=== PATIENT | male | born 1955 | race Caucasian/White ===

== ENCOUNTER 2019-04-22 15:56 | Inpatient (IN) ==
--- NOTE | 2019-04-22 16:33 | EKG Report ---
Test Performed on : 04/22/2019 4:04:23 PM Test Reason : DIZZINESS Blood Pressure : / mmHG Vent. Rate : 070 BPM Atrial Rate : 070 BPM P-R Int : 150 ms QRS Dur : 082 ms QT Int : 408 ms P-R-T Axes : 057 -19 047 degrees QTc Int : 440 ms Normal sinus rhythm. Minimal voltage criteria for LVH, may be normal variant Nonspecific ST and T wave abnormality Abnormal ECG No previous ECGs available Unconfirmed Result
--- NOTE | 2019-04-22 18:04 | Diag Imaging Result Doc PS360 ---
EXAM: CT HEAD W/O CONTRAST HISTORY: dizzy, headache TECHNIQUE: CT head without contrast COMPARISON: None. FINDINGS: No parenchymal hemorrhage. No epidural or subdural hematoma. No subarachnoid hemorrhage. No microvascular ischemic changes. Small hypodense area in the posterior horn of the right internal capsule. No mass identified on this noncontrasted exam. No hydrocephalus. No sinus opacification. IMPRESSION: 1.No hemorrhage 2.Possible recent infarct near the posterior horn of the right internal capsule. A follow-up MRI is recommended. This exam was performed using automated exposure control, adjustment of mA or kV according to patient size, and/or use of iterative reconstruction technique. Electronically signed by Pierre Qureshi 04/22/2019 6:01 PM
[2019-04-22 18:28] LABS: BASO# 0.02 X1000 (0.0-0.2); BASO% 0.2 % (0.0-0.8); EOS% 0.9 % (0.0-10.0); HEMATOCRIT 41.8 % (42.0-52.0); HEMOGLOBIN 13.9 g/dL (14.0-18.0); IMM GRAN# 0.05 X1000 (0.0-0.04); IMM GRAN% 0.5 % (0.0-0.5); LYMPH# 1.83 X1000 (1.2-3.4); MCH 28.8 PG (27-31); MCHC 33.3 g/dL (33-37); MCV 86.5 FL (81-99); MONO# 0.68 X1000 (0.11-0.59); MONO% 6.3 % (1.7-9.3); MPV 9.7 FL (7.4-10.4); NEUT% 75.1 % (42.2-75.2); PLT 357 X1000 (130-400); RBC 4.83 XMIL (4.7-6.1); RDW 13.4 % (11.5-14.5); WBC 10.78 X1000 (4.8-10.8)
[2019-04-22 18:41] LABS: AGAP 11; ALB/GLOB RATIO 1.3; ALBUMIN 4.1 g/dL (3.5-5.0); ALKALINE PHOSPHATASE 66 U/L (32-122); BUN 13 mg/dL (8-22); CHLORIDE 96 mmol/L (98-107); COSMO 272; CREATININE 0.8 mg/dL (0.7-1.2); ESTIMATED GFR > 60; GLUCOSE 102 mg/dL (70-104); GOT 23 U/L (10-34); GPT 33 U/L (10-44); POTASSIUM 3.9 mmol/L (3.5-5.1); SODIUM 136 mmol/L (136-145); TCO2 29 mmol/L (25-35); TOTAL BILIRUBIN 0.39 mg/dL (0.20-1.00); TOTAL PROTEIN 7.3 g/dL (6.3-8.3)
--- NOTE | 2019-04-22 19:00 | PROVIDER DOCUMENTATION ---
This chart was entered by Kimberlee Larsen Scribe, acting as scribe for Shahzad Chapman MD. HPI-General Adult - General Source: patient - History of Present Illness -Gen Adult Nature of Presenting Problems: Patient is a 63 year old male who presents with dizziness and nausea that has been present since this morning. Patient states seeing Dr. Calloway prior to arrival and was informed to go to the ED. States having headaches intermittently for 2 weeks. Denies vision changes. Location of Pain/Injury: reports: none Pain Radiation: reports: no radiation Quality of Pain: reports: none Severity: reports: mild Onset/Duration: reports: this morning Timing: reports: still present Context/Activities at Onset: reports: light activity Associated Symptoms: reports: dizziness, headaches, nausea Similar Symptoms Previously?: Yes Recently seen or treated by another doctor?: Yes <Shahzad Chapman - Last Filed: 04/22/19 18:58> <Drake Higuera - Last Filed: 04/22/19 19:52> - General Chief Complaint: Dizziness Stated Complaint: DR CALLOWAY REFERRED Time Seen by Provider: 04/22/19 16:57 Review of Systems - Adult - REVIEW OF SYSTEMS - ADULT Constitutional: reports: no symptoms reported. denies: chills, fever, fatique Eyes: reports: no symptoms reported Ears, Nose, Mouth & Throat: reports: no symptoms reported Cardiovascular: reports: no symptoms reported Respiratory: reports: no symptoms reported Gastrointestinal: reports: see HPI, nausea. denies: abdominal pain, diarrhea, vomiting Genitourinary: reports: no symptoms reported Musculoskeletal: reports: no symptoms reported Integumentary: reports: no symptoms reported Neurological: reports: see HPI, dizziness/vertigo (dizziness), headache/migraines (RICH). denies: numbness, seizure, syncope Psychiatric: reports: no symptoms reported Endocrine: reports: no symptoms reported Hematologic/Lymphatic: reports: no symptoms reported Allergic/Immunologic: reports: no symptoms reported All Other Systems: Reviewed and Negative <Shahzad Chapman - Last Filed: 04/22/19 18:58> Past History - Adult - PAST MEDICAL HISTORY-ADULT Review of Records: reports: Old Records Reviewed, Nursing Assessment Review, Medications Reviewed, Social history reviewed & non-contributory. Major Childhood Illnesses: reports: denies history Cardiovascular: reports: HTN Respiratory: reports: denies history Gastrointestinal: reports: denies history Obstetrical/Gynecological: reports: denies history Genitourinary: reports: denies history Musculoskeletal: reports: denies history Neurological: reports: denies history Psychiatric: reports: denies history Endocrine/Immune: reports: denies history Other Conditions: reports: denies history - PRIOR SURGERIES/PROCEDURES Surgical/Procedure History: reports: hernia repair - IMMUNIZATION STATUS Childhood Immunizations: See Nurse Assessment Flu Vaccine: See Nurse Assessment - FAMILY HISTORY Family History: reviewed, not pertinent - SOCIAL HISTORY Smoking: denies Substance Use: denies Living Situation: family <Shahzad Chapman - Last Filed: 04/22/19 18:58> Physical Exam-General - PHYSICAL EXAM-ADULT Initial Vital Signs Reviewed: Yes - CONSTITUTIONAL General Appearance: alert, no apparent distress. negative: lethargic, slow to respond - EYES Eyes: PERRL/EOMI, pink conjunctivae. negative: scleral icterus - HEAD, EARS, NOSE, MOUTH & THROAT HENMT: normocephalic/atraumatic, moist mucous membranes, normal ENT inspection, TMs normal, pharynx normal, other (hearing aid in bilateral ears). negative: angioedema, hearing deficit - RESPIRATORY Respiratory: chest non-tender, lungs clear, normal breath sounds. negative: crackles, rhonchi - CARDIOVASCULAR Cardiovascular: normal peripheral pulses, regular rate, rhythm. negative: tachycardia, systolic murmur - GASTROINTESTINAL (ABDOMEN) Abdominal Exam: normal bowel sounds, non tender, soft. negative: guarding, rebound - MUSCULOSKELETAL Extremity: non-tender, normal inspection. negative: deformity, swelling DTR: bicep (R): 2+, bicep (L): 2+, tricep (R): 2+, tricep (L): 2+, knee (R): 2+, knee (L): 2+, ankle (R): 2+, ankle (L): 2+ - SKIN Integumentary: normal color, normal turgor, warm/dry. negative: cyanosis, ecchy mosis, erythema, jaundice - NEUROLOGIC Neurologic: incident commander II-XII nml as tested, grossly normal, no motor/sensory deficits. negative: aphasia, facial droop - PSYCHIATRIC Psych/Mental Status: normal mood/affect, oriented x 3. negative: anxious <Shahzad Chapman - Last Filed: 04/22/19 18:58> Progress - PLAN OF CARE/RESULTS Progress/Plan/Lab Results: Vital Signs - 8 hr 04/22/19 15:57 Temperature 98.0 F Pulse Rate 74 Respiratory Rate 16 Blood Pressure 178/113 O2 Sat by Pulse Oximetry 98 Orders Category Date Time Status EKG [EKG] Stat Ther 04/22/19 16:04 Draft Result Diagrams: 04/22/19 18:07 04/22/19 18:07 - EKG 1 Time of EKG reading by physician:: 16:04 EKG Read and Signed by:: Shahzad Chapman EKG Interpretation (*Must complete 3 of following elements*): Abnormal Rate: 70 Rhythm: normal sinus rhythm [place]: normal QRS: LVH (minimal voltage criteria, may be normal variant) DE Interval: normal Comments: nonspecific ST and T wave abnormality. - CHANGE OF SHIFT REPORT (ED Provider) 1 Report Given and Care Transferred to:: [facility] Time of Transfer: 19:00 Items Pending: Physician Consult/Arrival <Shahzad Chapman - Last Filed: 04/22/19 18:58> - PLAN OF CARE/RESULTS Progress/Plan/Lab Results: Vital Signs - 8 hr 04/22/19 15:57 04/22/19 18:13 Temperature 98.0 F Pulse Rate 74 Pulse Rate [Sitting] 83 Pulse Rate [Standing] 88 Pulse Rate [Supine] 75 Respiratory Rate 16 Blood Pressure 178/113 Blood Pressure [Sitting] 148/76 Blood Pressure [Standing] 149/94 Blood Pressure [Supine] 153/66 O2 Sat by Pulse Oximetry 98 Laboratory Results - last 24 hr 04/22/19 04/22/19 18:07 18:07 WBC 10.78 RBC 4.83 Hgb 13.9 L Hct 41.8 L MCV 86.5 MCH 28.8 MCHC 33.3 RDW Std Deviation 13.4 Plt Count 357 MPV 9.7 Immature Gran % (Auto) 0.5 Neut % (Auto) 75.1 Lymph % (Auto) 17.0 L [place] % (Auto) 6.3 Eos % (Auto) 0.9 Baso % (Auto) 0.2 Immature Gran # (Auto) 0.05 H Neut # (Auto) 8.10 H Lymph # (Auto) 1.83 [place] # (Auto) 0.68 H Eos # (Auto) 0.10 Baso # (Auto) 0.02 Sodium 136 Potassium 3.9 Chloride 96 L Carbon Dioxide 29 Anion Gap 11 BUN 13 Creatinine 0.8 Estimated GFR/1.73 m2 > 60 BUN/Creatinine Ratio 16 Glucose 102 Calculated Osmolality 272 Calcium 9.0 Total Bilirubin 0.39 AST 23 ALT 33 Alkaline Phosphatase 66 Total Protein 7.3 Albumin 4.1 Globulin 3.2 Albumin/Globulin Ratio 1.3 Orders Category Date Time Status ED: Orthostatic Vital Signs (E as directed Care 04/22/19 17:[address] HEAD W/O CONTRAST [CT] Stat Exams 04/22/19 17:35 Completed CBC WITH DIFF [HEME] Stat Lab 04/22/19 18:07 Completed CMP [COMPREHENSIVE METABOLIC PANEL] [CHEM] Stat Lab 04/22/19 18:07 Completed EKG [EKG] Stat Ther 04/22/19 16:04 Draft Result Diagrams: 04/22/19 18:07 04/22/19 18:07 - REASSESSMENT Reassessment #1 Time Reassessed: 19:47 Status: improving (Seen and examined by me. Case discussed with Dr. Chapman at shift change. Dizziness has improved. Has abnormal CT head, requiring CVA/TIA work-up. Patient has had extensive ENT issues with dizziness recently, and was sent in by Dr. Calloway today. States feels better. BP is very high, will administer po asa and IV labetalol as he may have had CVA) Reassessment Comment: Patient does not meet criteria for TPA as BP too high and symptoms resolved - CONSULTS/PCP/HOSPITALIST Notification #1 *Consult/PCP/Hospitalist*: Dr. 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 <Drake Higuera - Last Filed: 04/22/19 19:52> - Departure DIAGNOSIS: Dizziness, Acute CVA (cerebrovascular accident), Hypertensive urgency Disposition: ADMITTED INPATIENT 09 Condition: Fair Referrals and Follow-Ups: Gabriel Hansen MD [Primary Care Provider] - Attestation - Physician/ HECTOR Attestation The physician spent face to face time with patient:: Yes Advanced Practice Provider documentation review:: Supervising physician onsite and consulted in the evaluation and care of this patient. The physician did have a face to face encounter with the patient. <Shahzad Chapman - Last Filed: 04/22/19 18:58> - Physician/ HECTOR Attestation Patient care was provided by Advanced Practice Provider:: No The physician spent face to face time with patient:: Yes Advanced Practice Provider documentation review:: Supervising physician onsite and consulted in the evaluation and care of this patient. The physician did have a face to face encounter with the patient. <Drake Higuera - Last Filed: 04/22/19 19:52> This chart was documented by the indicated scribe, (Kimberlee Larsen Scribe) and accurately reflects the services I performed and decisions made by me, Shahzad Chapman MD, as attested by the provider's signature.
[2019-04-22] MEDS ORDERED: ASPIRIN PO ONE (19:49)
[2019-04-22] MEDS ORDERED: LABETALOL IV ONE (19:49)
[2019-04-22 22:09] LABS: MAGNESIUM 2.3 mg/dL (1.5-2.7)
[2019-04-22 22:14] LABS: INR 0.81; PROTIME 11.9 Seconds (11.0-16.0)
[2019-04-23] MEDS ORDERED: TYLENOL PO PRN (01:11)
[2019-04-23 06:35] LABS: BASO# 0.04 X1000 (0.0-0.2); BASO% 0.5 % (0.0-0.8); EOS# 0.05 X1000 (0.0-0.7); EOS% 0.6 % (0.0-10.0); HEMATOCRIT 40.4 % (42.0-52.0); HEMOGLOBIN 13.4 g/dL (14.0-18.0); IMM GRAN# 0.03 X1000 (0.0-0.04); IMM GRAN% 0.3 % (0.0-0.5); LYMPH# 1.68 X1000 (1.2-3.4); LYMPH% 19.2 % (20.5-51.1); MCHC 33.2 g/dL (33-37); MCV 87.4 FL (81-99); MONO# 0.57 X1000 (0.11-0.59); MONO% 6.5 % (1.7-9.3); MPV 9.8 FL (7.4-10.4); NEUT# 6.36 X1000 (1.4-6.5); NEUT% 72.9 % (42.2-75.2); PLT 351 X1000 (130-400); RBC 4.62 XMIL (4.7-6.1); RDW 13.6 % (11.5-14.5); WBC 8.73 X1000 (4.8-10.8)
[2019-04-23 07:16] LABS: AGAP 9; BUN 15 mg/dL (8-22); CALCIUM 8.9 mg/dL (8.8-10.2); CHLORIDE 99 mmol/L (98-107); COSMO 277; CREATININE 0.8 mg/dL (0.7-1.2); ESTIMATED GFR > 60; GLUCOSE 105 mg/dL (70-104); POTASSIUM 4.2 mmol/L (3.5-5.1); SODIUM 138 mmol/L (136-145); TCO2 30 mmol/L (25-35)
--- NOTE | 2019-04-23 09:50 | Diag Imaging Result Doc PS360 ---
MRI BRAIN W/WO CONTRAST - 04/23/2019 INDICATION: stroke COMPARISON: Head CT 04/22/2019 FINDINGS: There is no area of restricted diffusion. The ventricles and sulci are normal in size and contour. No intracranial mass or hemorrhage. No abnormal contrast enhancement. There are some very minimal faint cerebral white matter hyperintensities bilaterally, mainly in the subcortical and deep white matter. Midline structures are normal. IMPRESSION: Faint, nonspecific white matter changes most likely chronic microvascular disease. No acute process. Electronically signed by Gopal Rodrigues 04/23/2019 9:47 AM
--- NOTE | 2019-04-23 10:54 | HISTORY AND PHYSICAL ---
PRIMARY CARE PHYSICIAN: Dr. Gabriel Sheldon. CHIEF COMPLAINT: Dizziness. HISTORY OF PRESENT ILLNESS: A 63-year-old male with a history of hypertension and hyperlipidemia, who had presented to the emergency department with complaint of dizziness he has been having for the past two months or so. He apparently was seeing his ENT physician, who was putting him on some vestibular exercises. He states that he was doing fine. However, over the past day or so, his dizziness worsened, and he stated that he had some speech disturbance. He was evaluated by his ENT physician, who sent him to the emergency department for possible stroke workup. The patient was evaluated in the ED. He had imaging done, which did show suspicion for recent CVA. Subsequently, he will require admission for further management. At the time of my examination, the patient denied any headache, fever, chills, chest pain, shortness of breath, hemoptysis, or weight changes, but complained of dizziness. PAST MEDICAL HISTORY: Includes hypertension, hyperlipidemia. PAST SURGICAL HISTORY: Hernia repair, sinus surgery. ALLERGIES: No known drug allergies. CURRENT MEDICATIONS: He does not recall, and nursing staff will reconcile. SOCIAL HISTORY: No history of smoking. Admits to social alcohol use. Denies any illicit drug use. FAMILY HISTORY: No history of coronary disease. REVIEW OF SYSTEMS: A 14-point review of systems is as per HPI, other systems negative. PHYSICAL EXAMINATION: GENERAL: Cooperative, friendly male. He is resting more comfortably now. VITAL SIGNS: Temperature 98.0, pulse 74, respirations 16, blood pressure 178/113. HEENT: Atraumatic, normocephalic. Extraocular movements intact. PERRLA. NECK: No masses. CHEST: Clear to auscultation. CARDIOVASCULAR: Regular rate and rhythm. ABDOMEN: Soft. Positive bowel sounds. NEUROLOGIC: He is awake, alert, oriented x3. Speech is intact. Strength 5/5 to lower extremities. GENITOURINARY: No bladder distention. SKIN: Warm. IMAGING AND LABORATORY DATA: WBC 10.78, hemoglobin 13.9, hematocrit 41.8, platelets 357,000. Sodium 136, potassium 3.9, chloride 96, CO2 of 29, BUN is 13, creatinine 0.8, glucose is 102. Head CT shows possible recent infarct near the posterior horn of the right internal capsule. ASSESSMENT: A 63-year-old male with a history of hypertension and hyperlipidemia, who had presented to the emergency department with a 2-month history of having dizziness. Apparently, it worsened over the past day or so. He was evaluated by his Ear, Nose, and Throat physician, who sent him to the emergency department for possible stroke workup. 1. Dizziness, suspected cerebrovascular accident. 2. Hypertension. 3. Hyperlipidemia. PLAN: 1. Will admit the patient to medical floor with telemetry. 2. Continue with stroke workup. 3. Consult Neurology. 4. Schedule the patient for MRI of the brain. 5. Will allow permission hypertension. 6. Will monitor blood pressure closely. 7. Put the patient on DVT prophylaxis with SCDs. 8. Will continue to follow and reassess and make further recommendations based on the patient's clinical course. cc: Justin Rios MD
[2019-04-23 16:31] VITALS: BP 141/83
--- NOTE | 2019-04-23 17:12 | Diag Imaging Result Doc PS360 ---
EXAM: CT ANGIOGRAM HEAD/NECK INDICATION: Rule out thrombosis TECHNIQUE: This exam was performed using automated exposure control, adjustment of mA or kV according to patient size, and/or use of iterative reconstruction technique. Thin section axial images through the head and neck as well as 3-D MIPS were obtained. COMPARISON: None. FINDINGS: HEAD: There is no evidence of flow-limiting stenosis, vascular malformation, or cerebral aneurysm involving the arteries comprising the pilot station of [place] including the anterior, middle, and posterior cerebral arteries. The distal ICAs and distal vertebral arteries are unremarkable. The basilar artery is patent. NECK: There is mild focal calcification at the carotid bulb on the right just distal to the bifurcation with up to 30% luminal narrowing. There is no evidence of flow-limiting stenosis, vascular malformation, dissection, or aneurysm involving the remainder of the carotid system on the right or the left carotid system. The left ICA is somewhat tortuous. The left vertebral artery is slightly dominant. Both vertebral arteries are patent throughout the courses. IMPRESSION: 1.Grossly unremarkable CTA head with no flow-limiting stenosis identified. 2.Mild atherosclerotic calcification at the right carotid bulb without is 30% luminal narrowing. Electronically signed by Braxton Molina 04/23/2019 5:10 PM
--- NOTE | 2019-04-23 20:24 | CONSULTATION ---
DATE OF CONSULTATION: 04/23/2019 HISTORY OF PRESENT ILLNESS: Mr. Caballero is 63 years old and he has had some dizziness with vision disturbance, headache, unsteady gait, question of neurologic explanation. History from the patient is that he began having these episodes more than a year ago. Episodes would vary from several seconds up to almost an hour. He would have swimmy headiness at times and sometimes dizziness that is harder to classify. He would often have unsteady gait, but he never noticed any focal features. Vision would sometimes be blurred. Headache occurred off and on and was not necessarily temporally related to the dizzy spells. He had dizzy spells more than once some days and none some days. He had ENT evaluation and started some physical therapy and was much improved. He did not have any episodes for approximately 2 months until last week. Six days ago, he had a minor spell. Three days ago, he had 2 minor spells. Yesterday, he had similar symptoms which did not resolve as quickly as in the past, but have completely resolved now. Once, he remembers turning his head rapidly to the left while driving and then he had a sense that his "vision was lost." He did not notice diplopia or focal loss of visual field. He simply could not see for several seconds, He was able to pull his car off the road without incident. Vision returned spontaneously. Otherwise, he has not had a definite head movement induced episode. Workup here includes brain MRI showing some minor chronic ischemic changes but nothing remarkable. Carotid ultrasound last August showed tortuous vessels, but no definite hemodynamically significant stenosis. He had echocardiogram last year and that showed no source of embolus. Initial blood pressure was 178 systolic. Subsequent blood pressures have ranged from 100s to 130s. He has been afebrile. Past history is remarkable for hypertension and dyslipidemia. There is no history of diagnosed clinical stroke, seizure, serious head injury, other neurologic event. He reports diabetes mellitus has been questioned, but he believes he does not have diabetes mellitus. He does not smoke cigarettes. He recalls taking meclizine possibly in the past without benefit. He was taking his regular medicines without missing doses recently and these include losartan/hydrochlorothiazide, aspirin, atorvastatin. PHYSICAL EXAMINATION: On exam, Mr. Caballero is awake, alert, attentive, appropriate, oriented. Speech is not dysarthric. Language function is intact. Recent and remote memory are good. Head and neck are unremarkable. Brief head hanging and turning maneuvers did not reproduce his chief complaint. Extraocular movements are full. Facial motility is symmetric. Facial sensation is intact to pinprick testing. Gag is intact. Tongue is midline. Hearing is diminished, improved with hearing aids. Shoulder shrug is equal. Strength is normal in the arms and legs. He did well on [id number] and [id number] testing bilaterally. Sensation is intact over the limbs. Proprioception is good at the great toe MTP joint bilaterally. Reflexes are 1+ at the knees and ankles symmetrically. Gait is unremarkable. Romberg is absent. Heel-to-toe tandem walking is normal. IMPRESSION: Episodes of dizziness with some spinning features, transient blurred vision, unsteady gait, but no clear focal features. I think this is not a primary central nervous system problem. I suggested that he continue aspirin, treat blood pressure aggressively, stay well hydrated, be careful when he is dizzy. He might try meclizine again, particularly if he is willing to take it regularly and if he tolerates it. Most episodes have been so brief that taking meclizine only when dizzy may not be effective. We might consider CT angiogram of the head and neck since the carotid ultrasound was not diagnostic. I think he should keep his ENT follow-up. Thanks for asking Neurology to see Mr. Caballero. I will be glad to see him again. cc: MD ANGEL Toledo III
[2019-04-23] MEDS ORDERED: LIPITOR PO SCH (21:00)
--- NOTE | 2019-04-23 22:45 | ECHO REPORT ---
ORDER DATE: 04/22/2019 MEASUREMENTS: Septal thickness 1.3. Posterior wall thickness 1.3. Left ventricular internal diameter in diastole 4.4, left ventricular internal diameter in systole 2.9. Aortic root 3.8. Left atrium 3.1. SUMMARY: 1. Adequate quality study. 2. Very mild sclerosis of trileaflet aortic valve demonstrated, with adequate aortic valve opening evident. Peak gradient across the aortic valve is 12 mmHg. There is trace aortic regurgitation. Mitral, tricuspid and pulmonic valves are without evidence of structural abnormality, with very mild mitral regurgitation, trace tricuspid regurgitation, and mild pulmonic insufficiency. The estimated systolic PA pressure by Doppler is 30 to 35 mmHg. The aortic root is borderline enlarged. 3. Normal left ventricular chamber size with mild concentric left ventricular hypertrophy is demonstrated. Estimated left ventricular ejection fraction appears to be at least 65%. No regional wall motion abnormalities are evident. Left atrium, right atrium and right ventricle are normal in size, with grossly preserved right ventricular systolic function. 4. No pericardial effusion. 5. Appearance of the inferior vena cava suggests normal central venous pressure. CONCLUSIONS: 1. Very mild aortic valve sclerosis without stenosis, with trace aortic regurgitation. 2. Very mild mitral regurgitation. 3. Trace tricuspid regurgitation with estimated systolic pulmonary artery pressure of 30 to 35 mmHg. 4. Mild concentric left ventricular hypertrophy with estimated left ventricular ejection fraction at least 65%. 5. Borderline aortic root enlargement. cc: MD Justin Mcdonough MD
[2019-04-24] MEDS ORDERED: FISH OIL CONCENTRATE PO SCH (09:00)
[2019-04-24] MEDS ORDERED: ASPIRIN PO SCH (09:00)
--- NOTE | 2019-04-24 16:34 | DISCHARGE SUMMARY ---
ADMISSION DATE: 04/22/2019 DISCHARGE DATE: 04/23/2019 DISCHARGE DISPOSITION: Home. DISCHARGE CONDITION: Hemodynamically stable. The patient is alert and oriented x3. He is denying any more dizziness or gait disturbance. He denies any headache. CONSULTATION DURING HOSPITALIZATION: Neurologist, Dr. Luther. DISCHARGE DIAGNOSES: 1. Dizziness with suspected CVA. 2. Essential hypertension. 3. Hyperlipidemia. 4. Headache. OTHER DIAGNOSES: 1. History of subacute dizziness of about 3 months duration, being worked up outpatient for vestibular disease. 2. History of essential hypertension. 3. History of hyperlipidemia. DISCHARGE MEDICATIONS: Aspirin 325 mg daily. Losartan/hydrochlorothiazide 50/12.5 mg tablet daily, 1 tablet daily. Atorvastatin 80 mg at nighttime. [place]-3 fish oil 1 capsule daily. Apple cider vinegar tablet 1 tablet daily. Garlic 2 g p.o. daily. VITALS: At the time of discharge temperature 98.4, pulse 76, respiratory rate 20. Blood pressure 140/80, saturating 97% on room air. PHYSICAL EXAMINATION: General: Alert and oriented x3, not in acute distress. ENT: Oral cavity is moist. Lungs: Air entry bilaterally equal. No wheeze, rhonchi, or crackles. Cardiovascular: S1, S2 normal. No murmur or gallop. Abdomen: Soft, nontender. Extremities: No lower extremity edema. Neurologic: He is alert and oriented x3. His sensation is intact bilaterally. His power is 5/5 bilateral upper and lower extremity. He does not have any facial droop. His speech is normal and his cranial nerve examination is also normal. He is able to walk without any disturbance. SIGNIFICANT LABS: During hospital admission. Discharge WBC 8.7, hemoglobin 13.4, platelet of 351. Normal electrolytes. BUN 15, creatinine 0.8. Cholesterol profile had total cholesterol 192 and LDL of 110. SIGNIFICANT IMAGING: During hospital admission: Electrocardiogram had normal sinus rhythm. Minimum voltage criteria for left ventricular hypertrophy. Head CT had no hemorrhage. There was a possible recent infarct near posterior horn of the right internal capsule. However, on brain MRI, there were faint nonspecific white matter changes, most likely chronic microvascular disease without any acute process. Head and neck CT angiogram had grossly unremarkable CT angiography of head with no flow limiting stenosis. He had mild atherosclerotic calcification on the right carotid bulb with a 30% luminal narrowing. HOSPITAL COURSE SUMMARY: Mr. Caballero is a 63-year-old, man who has had history of hypertension, hyperlipidemia, who was sent to emergency room from his ENT doctor's office for complaints of persistent dizziness, headache, and gait instability. Apparently, he has been complaints of dizziness and gait disturbance for about 3 months for which he was seeing an ENT doctor and he was getting vestibular exercises and he was doing fine until about a day ago when his dizziness worsened. To me, he denied any speech disturbance as such, except his baseline word- finding difficulty. In the emergency room. He had a head CT that was suspicious for new stroke. However, MRI was negative. Neurology was consulted and after my discussion, Neurology had felt like his symptoms were coming from inner ear pathology rather than new acute CVA. His MRI brain was unremarkable. CT scan angiogram was also unremarkable for significant stenosis of any intra or extracranial blood vessels. His echocardiogram was performed. Read was pending and I advised patient to call his heart doctor who is Dr. Hartley to discuss about the echocardiogram results since it is pending. However, patient was very adamant about going home and he promised me that he would call his heart doctor to find out the results. At the time of discharge, he did not have any symptoms and he was advised to follow up with Neurology as needed and continue his exercise as per ENT recommendation. TIME SPENT: More than 30 minutes spent in discharging this patient. cc: MD ANGEL Harrell
== END 2019-04-23 19:07 | disposition home or self-care (01) | DRG 149 ==
LOC: ED 15:56 → 4N 21:00 → SUATTDRO 21:00
PROVIDERS: ATTEND Internal Medicine
CPT/HCPCS: 70450; 70496; 70498; 70553; 80048; 80053; 80061; 82550; 83721; 83735; 83880; 84484; 85025; 85610; 93005; 93306; 93880; 97161; A9270; A9579; Q9967